=== PATIENT | male | born 2000 | race Caucasian/White ===

== ENCOUNTER 2019-04-09 13:38 | Day surgery (SDC) | payer OTHER ==
[~2019-04-09] VITALS: Ht 177.8 cm; Wt 84.6 kg
[2019-04-09] VITALS (7 sets, daily range): BP systolic 121–136; BP diastolic 52–78; PULSE 56–84; TEMP 97.3–98
[2019-04-09] MEDS ORDERED: NORCO 325 MG-51 TAB PO (18:21)
--- NOTE | 2019-04-09 22:47 | NUR ---
PATIENT TO ROOM 322-2 AT 1915. STARTED ON POST OPS. PATIENT DENIES NEED FOR PAIN MEDICATION. SCDS ON. ALERT AND ORIENTED. EAT A SANDWICH, COOKIE, AND APPLESAUCE. DRANK SEVERAL CUPS OF WATER. AMBULATED TO RESTROOM, HAD SOME MODERATE PAIN. PO NORCO GIVEN. HAD EPISODE OF NAUSEA WHEN RETURNING TO BED. PRN ZOFRAN 4MG WAS PUSHED. PATIENT RETURNED TO BED. AMBULATED TO RESTROOM AGAIN AND HAD UNMEASURED VOID. PATIENT DISCHARGED AT 2230. IV IN L WRIST DC'D. CATHETER INTACT, BANDAID APPLIED. WALKED OUT BY SURG STAFF ACCOMPANIED BY FRIEND.
== END 2019-04-09 22:30 | disposition home or self-care (01) ==
LOC: SDCO 13:38 → SURG 20:10 → SDCO 22:30 → SURG 22:30
DX: K40.20 Bilateral inguinal hernia, without obstruction or gangrene, not specified as recurrent (principal); D17.6 Benign lipomatous neoplasm of spermatic cord
CPT/HCPCS: OP; C1781; J1885; J2250; J2405; J2704; J3010; J7120